=== PATIENT | male | born 1955 | race Caucasian/White ===

== ENCOUNTER → 2017-04-25 | Outpatient (CLI) | payer OTHER ==
[~2017-04-25] MED LIST: ACET500C PO; ALBU17IN INH; CIPR500T3 PO; COLA100C5 PO; FLAG500T PO; LISI20TA3 PO; NIFE60TA61 PO; NORC7.5T35 PO; PERC5TAB12 PO; SPIR1CAP INH; SYMB16INH INH; VARE1TA PO
--- NOTE | 2017-04-25 11:38 | REP ---
Chest x-ray: Two views. History: Hemoptysis. Follow-up. Comparison chest x-ray July 05, 2016. Comparison chest CT study January 12, 2016. Findings: There is some mild pleural thickening again noted along the lateral chest harmon. A somewhat nodular opacity is visible along the left lower lateral chest wall corresponding with the parenchymal 2.5 cm nodule seen on the January 12, 2016 study. 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 This was also seen on CT study. Interstitial markings are slightly prominent at the bases as before. There is no evidence of pleural effusion. Heart is not enlarged. No new infiltrate is seen. There is an old healed rib fracture on the right. Degenerative changes are seen in the thoracic spine. Impression: Nodular opacity persists at the left base with some mild bilateral stable pleural thickening. No new infiltrate seen. Signed by Jimmy Perez MD 04/25/2017 02:02 P
== END ==
LOC: M SMT 09:29
PROVIDERS: ATTEND Internal Medicine Pulmonary Disease
DX: R04.2 Hemoptysis (principal)

== ENCOUNTER → 2017-08-29 | Outpatient (CLI) | payer OTHER ==
[2017-08-29 15:32] LABS: CALCIUM LEVEL 9.3 MG/DL (8.8-10.2); CREATININE FOR GFR 2.25 MG/DL (0.70-1.30); GLOMERULAR FILTRATION RATE 31.7 (>49); POTASSIUM SERUM 5.1 MEQ/L (3.5-5.1)
[2017-08-29 15:36] LABS: MEAN CORPUSCULAR HEMOGLOBIN 41.1 pg (27.0-33.0); MEAN CORPUSCULAR HGB CONC 35.7 g/dl (32.0-36.5); RED CELL DISTRIBUTION WIDTH 14.4 % (11.5-14.5); WHITE BLOOD COUNT 3.9 10^3/uL (4.0-10.0)
[2017-08-29 15:52] LABS: MEAN CORPUSCULAR VOLUME 115.4 fl (80.0-96.0); PLATELET COUNT, AUTOMATED 111 10^3/uL (150-450)
== END ==
LOC: M SFHCSACK 08:06
PROVIDERS: ATTEND Internal Medicine Cardiovascular Disease
DX: I10 Essential (primary) hypertension (principal); R06.2 Wheezing

== ENCOUNTER → 2017-09-26 | Outpatient (CLI) | payer OTHER ==
[2017-09-26 14:57] LABS: MEAN CORPUSCULAR HEMOGLOBIN 41.5 pg (27.0-33.0); MEAN CORPUSCULAR HGB CONC 36.1 g/dl (32.0-36.5); PLATELET COUNT, AUTOMATED 148 10^3/uL (150-450); RED CELL DISTRIBUTION WIDTH 16.1 % (11.5-14.5); WHITE BLOOD COUNT 6.4 10^3/uL (4.0-10.0)
[2017-09-26 15:17] LABS: MEAN CORPUSCULAR VOLUME 115.1 fl (80.0-96.0)
[2017-09-26 15:25] LABS: ALBUMIN/GLOBULIN RATIO 1.14 (1.00-1.93); ALKALINE PHOSPHATASE 85 U/L (45-117); ALT/SGPT 89 U/L (12-78); ANION GAP 15 MEQ/L (8-16); AST/SGOT 163 U/L (7-37); BILIRUBIN,TOTAL 0.9 MG/DL (0.2-1.0); BLOOD UREA NITROGEN 55 MG/DL (7-18); CARBON DIOXIDE LEVEL 22 MEQ/L (21-32); CHLORIDE LEVEL 92 MEQ/L (98-107); CREATININE FOR GFR 1.58 MG/DL (0.70-1.30); GLOMERULAR FILTRATION RATE 47.7 (>49); GLUCOSE, FASTING 118 MG/DL (80-110); POTASSIUM SERUM 4.9 MEQ/L (3.5-5.1); SODIUM LEVEL 129 MEQ/L (136-145); TOTAL PROTEIN 7.5 GM/DL (6.4-8.2)
== END ==
LOC: M SFHCSACK 11:59
DX: I10 Essential (primary) hypertension (principal); R06.2 Wheezing; E66.01 Morbid (severe) obesity due to excess calories; Z12.5 Encounter for screening for malignant neoplasm of prostate
CPT/HCPCS: 80053

== ENCOUNTER → 2017-09-27 | Outpatient (CLI) | payer OTHER ==
--- NOTE | 2017-09-27 13:40 | REP ---
RENAL AND BLADDER ULTRASOUND: Real-time sonographic evaluation of the kidneys performed and demonstrates both kidneys to be normal in size and echotexture, right kidney measuring 14.0 x 6.9 x 5.9 cm and left kidney 14.2 x 5.7 x 5.3 cm. There is no hydronephrosis bilaterally. Calcified vessels are seen in each kidney. There is no evidence of renal mass or calculus. The study is somewhat limited due to patient body habitus. Urinary bladder is mild to moderately distended with no mass or calculus. IMPRESSION: No hydronephrosis, renal mass or nephrolithiasis. Signed by Juan Manuel Streeter MD 09/27/2017 03:14 P
== END ==
LOC: M RAD 10:59
PROVIDERS: ATTEND Internal Medicine Cardiovascular Disease
DX: I34.0 Nonrheumatic mitral (valve) insufficiency (principal)

== ENCOUNTER 2017-10-03 20:49 | Emergency (ER) | payer OTHER | END 2017-10-04 00:34 | disposition E | LOC: EDBD 20:49 → M ED 20:49 | DX: I46.9 Cardiac arrest, cause unspecified (principal); Z79.899 Other long term (current) drug therapy ==